=== PATIENT | female | born 1960 | race Caucasian/White ===

== ENCOUNTER 2019-10-11 10:45 | Emergency (ER) | payer BC, SELFPAY ==
--- NOTE | 2019-10-11 10:55 | ED.GENADULT ---
HPI - General Adult General Chief complaint: Ear Stated complaint: ear itchy/difficulty hearing Time Seen by Provider: 10/11/19 10:55 Source: patient and RN notes reviewed History of Present Illness HPI narrative: Patient is a 58-year-old female that presents the urgent care with complaints of an itchy left ear with decreased hearing. Patient states that she noticed it on Thursday. Patient states that she chronically uses Q-tips and this has happened in the past. Patient denies any use of [id number] Debrox or pouring anything in the ear. Denies any trauma to the ear. Denies any fever, chills, pain in the ear. No other acute complaints. No acute distress noted. Patient had a plan of care. Related Data Home Medications Medication Instructions Recorded Confirmed Flonase Allergy Relief 10/11/19 lisinopril 10/11/19 omeprazole 10/11/19 simvastatin 10/11/19 Allergies Allergy/AdvReac Type Severity Reaction Status Date / Time Penicillins Allergy Rash Verified 10/11/19 10:58 Review of Systems Review of Systems: Narrative: CONSTITUTIONAL: Denies fever, chills, or sweats. EYES: Denies visual changes, redness, or discharge. ENT: Reports of itchy left ear with decreased hearing CARDIOVASCULAR: Denies chest pain, palpitations, or edema. RESPIRATORY: Denies cough or dyspnea. GASTROINTESTINAL: Denies abdominal pain, nausea, vomiting, or diarrhea. GENITOURINARY: Denies dysuria or hematuria. SKIN: Denies rash or itching. MUSCULOSKELETAL: Denies back pain, joint pain, or myalgia. NEUROLOGIC: Denies headache, numbness, or weakness. All other systems reviewed are negative, except as documented in HPI. PMFSH Comments At the time of my signature, I reviewed and agree with the nursing past medical, surgical, social, and family history. There is no relevant family history pertinent to the patient complaint. Exam Narrative: Exam Narrative: GENERAL: This is a well-nourished, well-developed patient, in no apparent distress. HEAD: normocephalic, atraumatic. EYES: PERRL. Sclera clear/white. Vision is grossly intact. EARS: External ears normal, auditory canals clear and without drainage, unable to visualize left TM due to cerumen impaction, mild cerumen to the right with TM normal without perforation. NOSE: External nose normal with no obvious nasal discharge THROAT: Mucous membranes moist NECK: Neck supple CARDIOVASCULAR: Regular rate and rhythm without murmurs, gallops, or rubs. RESPIRATORY: Clear to auscultation. Breath sounds equal bilaterally. No wheezes, rales, or rhonchi. SKIN: warm, intact with no suspicious lesions or rash, good texture and turgor. NEURO: awake, alert, and oriented to person, place and time. There were no obvious focal neurologic abnormalities. EXTREMITIES: No clubbing, cyanosis, or edema. Course Vital Signs Vital signs: Vital Signs Temperature 97.6 F 10/11/19 11:00 Pulse Rate 77 10/11/19 11:00 Respiratory Rate 18 10/11/19 11:00 Blood Pressure 143/69 H 10/11/19 11:00 Pulse Oximetry 97 10/11/19 11:00 Temperature 97.6 F 10/11/19 11:00 Pulse Rate 77 10/11/19 11:00 Respiratory Rate 18 10/11/19 11:00 Blood Pressure 143/69 H 10/11/19 11:00 Pulse Oximetry 97 10/11/19 11:00 Reviewed?patient is informed that they may have pre-hypertension or hypertension based on a blood pressure reading in the department. I recommend the patient call the primary care provider listed on their discharge instructions or a physician of their choice this week to arrange follow-up for further evaluation of possible pre-hypertension or hypertension. Procedures Ear Wax Removal Left Ear: Cerumenolytic Used: other (50-50% peroxide and warm water) Results: Re-examined: cerumen removed completely TM Examination: TM(s) intact, normal appearance Patient Tolerated Procedure: well Complications: no problems Additional Comments: Patient tolerated well. TM intact
[2019-10-11 11:00] VITALS: BP 143/69; PULSE 77; RESP 18; TEMP 36.4; O2SAT 97
== END 2019-10-11 11:15 | disposition home or self-care (01) ==
PROVIDERS: Emergency Provider Nurse Practitioner Family
DX: H61.22 Impacted cerumen, left ear (principal); I10 Essential (primary) hypertension; E78.00 Pure hypercholesterolemia, unspecified
CPT/HCPCS: 69209; 99212; G0463